=== PATIENT | female | born 1985 | race Caucasian/White ===

== ENCOUNTER 2022-01-25 20:08 | Emergency (ER) | payer SELFPAY ==
--- OUTSIDE RECORDS SUMMARY | 2022-01-25 20:11 | XMS REPORT | Continuity of Care Document ---
:1985 Author Organization [facility] t Address [address] [place] [address] Care Team Providers Name Role Phone Randa Lazar Attending Clinician Unavailable Leni Perez Attending Clinician Unavailable Randa Lazar Admitting Clinician Unavailable Leni Perez Admitting Clinician Unavailable Payers Payer Name Policy Type Policy Number Effective Date Expiration Date S ource Problems This patient has no known problems. Allergies, Adverse Reactions, Alerts Allergy Allergy Status Severity Reaction(s) Onset Inactive Treating Comm ents Source Name Type Date Date Clinician cefoxiti [place] Active [place] [facility] [place] cefox[facility] [place] [facility] sodium 1-08 [facility] [place] No Known DA Active [facility] [facility]: [address] c[place] [facility] sodium 9- [facility] [place] cefox[facility] DA Active [place] [facility] n sodium 9 [facility] [place] Family History Family Member Diagnosis Comments Start Date Stop Date Source Paternal aunt Cervical cancer [facility] Paternal grandfather Cancer [facility] Paternal grandmother Colon cancer [facility] Natural sister No Known Problems Met [facility] Natural [facility] Natural son No Known Problems Method [facility] Natural father No Known Problems Met [facility] Maternal aunt Breast cancer [facility] Maternal aunt No [facility] Maternal grandfather Stomach cancer [facility] Maternal grandmother Lung cancer Met [facility] Natural mother No Known Problems Met [facility] Other No Known Problems [facility] Social History Social Habit Start Date Stop Date Quantity Comments Source Sex Ass[birth year] [facility] 00:00:00 00:00:00 Smoking Status Start Date Stop Date Source Never smoked tobacco [facility]spital Medications Ordered Filled Start Stop Current Ordering Indication Dosage Frequency Signature Comments Components Source Medication Medication Date Date Medication? Clinician (SIG) Name Name valACYclovi Yes TAKE 1 Meth diana r (VALTREX) 8-[address] 500 MG 00:00: EVERY 12 Hospita tablet 00 HRS ORALLY l 3 DAY(S) Procedures Procedure Date / Time Performed Performing Clinician [facility] e [id number] 2020-05-06 00:00:00 [facility] [id number] 2020-05-06 00:00:00 [facility] [id number] 2020-05-06 00:00:00 [facility] Plan of Care Planned Activity Planned Date Details Comments Source Future Scheduled 2021-12-27 HEPATITIS B [facility] Test 18:42:37 VACCINES (1 of 3 - 3-dose series) [code = HEPATITIS B VACCINES (1 of 3 - 3-dose series)] Future Scheduled 2021-12-27 COVID-19 VACCINE [facility] Test 18:42:37 (#1) [code = COVID-19 VACCINE (#1)] Future Scheduled 2021-12-27 Screening for [facility] Test 18:42:37 malignant neoplasm of cervix (procedure) [code = 150263914] Future Scheduled 2021-12-27 INFLUENZA VACCINE [facility] Test 18:42:37 [code = INFLUENZA VACCINE] Encounters Start End Encounter Admission Attending Care Care Encounter Source Date/Time Date/Time Type Type Clinicians Facility Department ID 2020-05-30 Inpatient EMMA Lazar [facility] [id number] [facility] 15:00:00 Crystal 45 [facility] [place] 2020-05-05 Inpatient Chris, [facility] RIZWANA [id number] [facility] 11:54:00 Leni 94 [facility] [place] 2020-04-17 Inpatient EL [place], [facility] DIAB [id number] [facility] 07:56:00 Leni 47 [facility] 2020-05-05 2020-05-05 Outpatient Nagi, HCA[facility] REFE [id number] [facility] 17:13:00 17:13:[address] [facility] 2019-12-30 2019-12-30 Outpatient [place], [facility] RADI [id number] [facility] 11:00:00 11:00:00 Leni 41 [facility] Results Test Description Test Time Test Comments Results Result Comments Source GLUBED 2020-05-09 14:54:00 Test Item Value Reference Range Interpretation Comme nts GLUBED (test code = GLUBED) 94 mg/dL 65-110 N [id number] 14:54:00 Test Item Value Reference Range Interpretation Comments GLUBED (test code = GLUBED) 88 mg/dL 65-110 N [id number] 14:54:00 Test Item Value Reference Range Interpretation Comments GLUBED (test code = GLUBED) 90 mg/dL 65-110 N HGB [id number] 07:45:00 Test Item Value Reference Range Interpretation Comments HEMOGLOBIN (test code = HGB) 11.7 g/dL 10.7-13.9 N HEMATOCRIT (test code = HCT) 37.8 % 32.1-42.1 N COMPREHENSIVE METABOLIC [id number] 00:58:00 Test Item Value Reference Range Interpretation Comments SODIUM (test code = NA) 136 mEq/L 135-145 N POTASSIUM (test code = K) 4.3 mEq/L 3.5-5.0 N CHLORIDE (test code = CL) 102 mEq/L 100-115 N CARBON DIOXIDE (test code = CO2) 21 mEq/L 22-31 L ANION GAP (test code = GAP) 17.20 10-20 N GLUCOSE (test code = GLU) 57 mg/dL 65-110 L BLOOD UREA NITROGEN (test code = 12 mg/dL 7-18 N BUN) GLOMERULAR FILTRATION RATE (test 141 ml/min >60 N code = GFR) CREATININE (test code = CREAT) 0.5 mg/dL 0.5-1.0 N TOTAL PROTEIN (test code = PROT) 6.2 gm/dL 6.3-8.2 L ALBUMIN (test code = ALB) 2.8 gm/dL 3.4-4.8 L CALCIUM (test code = CA) 8.8 mg/dL 8.4-10.2 N BILIRUBIN TOTAL (test code = BILT) 0.9 mg/dL 0.2-1.0 N SGOT/AST (test code = AST) 26 units/L 15-37 N SGPT/ALT (test code = ALT) 19 units/L 12-78 N ALKALINE PHOSPHATASE TOTAL (test 95 units/L 46-116 N code = ALKP) GLYCOSYLATED HEMOGLOBIN (HA1C)2020-05-07 00:58:00 Test Item Value Reference Range Interpretation Comments GLYCOSYLATED 4.1 % 4.8-5.9 L Any condition t hat shortens HEMOGLOBIN (HA1C) erythocyte survival or (test code = GLYHGB) decreas esmean erythrocyte age (e.g., agnieszka very from acute blood los s,hemolytic anemia) will fa lsely lower HGBA1c resultsr egardless of the method used . HGBA1c results from [place] HbSS, HbCC, and HbSc must be interpreted with cautiongiven th e pathological pr ocesses, including anemi a,increased red cell turnov er, transfusion req uirements, thatadversely i mpact HGBA1c as a marker of long-term glycemiccontrol . Alternative for ms of testing such as fructosaminesho uld be considered for these patients. GLYCOSYLATED HEMOGLOBIN [id number] 00:57:00 Test Item Value Reference Range Interpretation Comments GLYCOSYLATED 4.1 % 4.8-5.9 L Any condition t hat HEMOGLOBIN (HA1C) shortens e rythocyte (test code = GLYHGB) surviva l or decreasesmean erythrocyte age (e.g., recovery from a cute blood loss,hemolytic anemia) will falsely lo wer HGBA1c resultsregardle ss of the method used. HG BA1c results from [place] HbSS, HbCC, and HbSc must be interpreted with cautiongiven th e pathological pr ocesses, including anemia,increase d red cell turnover, trans fusion requirements, thatadversely i mpact HGBA1c as a mar ker of long-term glycemiccontrol . Alternative for ms of testing such as fructosaminesho uld be considered for these patients. MEAN BLOOD GLUCOSE 71 MG/DL 70-110 N (test code = MBG) AB [id number] 18:32:00 Test Item Value Reference Range Interpretation Comments AB TREPONEMA (test code = TREPAB) NONREACTIVE NONREACTIVE IS CONSENT FORM SIGNED FOR HIV TESTING? YAB HIV 1 18:32:00 Test Item Value Reference Range Interpretation Comments AB HIV 1 2 (test NONREACTIVE NONREACTIVE Done by [facility] code = [id number]) 4th Gen HIV Ag/Ab Combo Screen IS CONSENT FORM SIGNED FOR HIV TESTING? YAG HEPATITIS B [id number] 18:32:00 Test Item Value Reference Range Interpretation Comments AG HEPATITIS B SURFACE (test code NONREACTIVE NONREACTIVE = HBSAG) IS CONSENT FORM SIGNED FOR HIV TESTING? [facility] HEPATITIS C [id number] 18:32:00 Test Item Value Reference Range Interpretation Comments AB HEPATITIS C (test code = NONREACTIVE NONREACTIVE HCVAB) SIGNAL TO CUTOFF (test code = <0.02 <0.80 N CUTOFF) IS CONSENT FORM SIGNED FOR HIV TESTING? YAG HEPATITIS B [id number] 18:22:00 Test Item Value Reference Range Interpretation Comments AG HEPATITIS B SURFACE (test code NONREACTIVE NONREACTIVE = HBSAG) IS CONSENT FORM SIGNED FOR HIV TESTING? [facility] HEPATITIS C [id number] 18:22:00 Test Item Value Reference Range Interpretation Comments AB HEPATITIS C (test code = HCVAB) NONREACTIVE SIGNAL TO CUTOFF (test code = CUTOFF) <0.80 IS CONSENT FORM SIGNED FOR HIV TESTING? YAB [id number] 18:22:00 Test Item Value Reference Range Interpretation Comments AB TREPONEMA (test code = TREPAB) NONREACTIVE NONREACTIVE IS CONSENT FORM SIGNED FOR HIV TESTING? YAB HIV 1 18:22:00 Test Item Value Reference Range Interpretation Comments AB HIV 1 2 (test code = [id number]) NONREACTIVE IS CONSENT FORM SIGNED FOR HIV TESTING? YCOMPREHENSIVE METABOLIC [id number] 17:40:00 Test Item Value Reference Range Interpretation Comments SODIUM (test code = NA) 136 mEq/L 135-145 N POTASSIUM (test code = K) 4.3 mEq/L 3.5-5.0 N CHLORIDE (test code = CL) 102 mEq/L 100-115 N CARBON DIOXIDE (test code = CO2) 21 mEq/L 22-31 L ANION GAP (test code = GAP) 17.20 10-20 N GLUCOSE (test code = GLU) 57 mg/dL 65-110 L BLOOD UREA NITROGEN (test code = 12 mg/dL 7-18 N BUN) GLOMERULAR FILTRATION RATE (test 141 ml/min >60 N code = GFR) CREATININE (test code = CREAT) 0.5 mg/dL 0.5-1.0 N TOTAL PROTEIN (test code = PROT) 6.2 gm/dL 6.3-8.2 L ALBUMIN (test code = ALB) 2.8 gm/dL 3.4-4.8 L CALCIUM (test code = CA) 8.8 mg/dL 8.4-10.2 N BILIRUBIN TOTAL (test code = BILT) 0.9 mg/dL 0.2-1.0 N SGOT/AST (test code = AST) 26 units/L 15-37 N SGPT/ALT (test code = ALT) 19 units/L 12-78 N ALKALINE PHOSPHATASE TOTAL (test 95 units/L 46-116 N code = ALKP) GLYCOSYLATED HEMOGLOBIN (HA1C)2020-05-05 17:40:00 Test Item Value Reference Range Interpretation Comments GLYCOSYLATED HEMOGLOBIN (HA1C) (test code = GLYHGB) COVID 19 Asymptomatic IH [id number] 14:34:00 Test Item Value Reference Range Interpretation Comments COVID 19 NEGATIVE NEGATIVE This test has b een Asymptomatic IH AG authorize d only for the (test code = detection ofpro teins from COVNONPUIAG) SARS-CoV-2, not for any other viruses orpathogens. Ne gative results should be treated as presumptive andconfirmed wi th a molecular assay , if necessary for patientmanageme nt. Negative result s do not rule out COVID- 19 andshould not b e used as the sole basis for treatment orpat ient management deci sions, including infec tion controldecision s. Negative result s should be considered i n thecontext of a patient's recent exposure s, history and thepresence of clinical signs and symptoms consis tent withCOVID-19. T his test has not been FD A cleared or approved; th e test hasbeen authorrakesh guillory by FDA under an Emerge ncy Use Authorization(E UA) for use by lesa owens certified under the CLIA thatmeet the re quirements to perform mode rate, high or waivedcomple xity tests. This sherrie t is authorized for use at thePoint of Car e (POC), i.e., in patien t care settingsoperati ng under a CLIA Certificat e of Waiver, Certifi federico ofCompliance, o r Certificate of Accreditation. This test is only authori kahlil for the duration of thedeclaration that circumstances e xist justifying theauthorizatio n of emergency use o f in vitro diagnostic test sfor detection and/o r diagnosis of CO VID-19 under Guccdzk76 4(b)(1) of the Act, 21 U.S .C. 360bbb-3(b)(1), unless theauthorizatio n is terminated or r evoked sooner. CBC W/AUTO [id number] 13:02:00 Test Item Value Reference Range Interpretation Comments WHITE BLOOD CELL (test code = WBC) 12.4 K/mm3 6.6-12.1 H RED BLOOD CELL (test code = RBC) 3.79 M/mm3 3.45-5.01 N HEMOGLOBIN (test code = HGB) 12.2 g/dL 10.7-13.9 N HEMATOCRIT (test code = HCT) 38.4 % 32.1-42.1 N MEAN CELL VOLUME (test code = MCV) 101 fL 84.1-94.8 H MEAN CELL HGB (test code = MCH) 32.2 pg 27-35 N MEAN CELL HGB CONCETRATION (test 31.8 gm/dL 32.2-34.1 L code = MCHC) RED CELL DISTRIBUTION WIDTH (test 18.2 % 12.4-16.5 H code = RDW) PLATELET COUNT (test code = PLT) 147 K/mm3 133-385 N MEAN PLATELET VOLUME (test code = 11.4 fl 9.1-12.7 N MPV) NEUTROPHIL % (test code = NT%) 79.2 % 56.5-79.4 N LYMPHOCYTE % (test code = LY%) 11.8 % 14.3-34.3 L MONOCYTE % (test code = MO%) 7.8 % 5.1-10.4 N EOSINOPHIL % (test code = EO%) 0.3 % 0.1-3.0 N BASOPHIL % (test code = BA%) 0.2 % 0.1-1.0 N NEUTROPHIL # (test code = NT#) 9.8 K/mm3 LYMPHOCYTE # (test code = LY#) 1.5 K/mm3 MONOCYTE # (test code = MO#) 1.0 K/mm3 EOSINOPHIL # (test code = EO#) 0.04 K/mm3 BASOPHIL # (test code = BA#) 0.0 K/mm3 RBC MORPHOLOGY REQUIRED (test code NORMAL NORMAL = RBCM) PLATELET MORPHOLOGY REQUIRED (test NORMAL NORMAL code = PLTMR) - US PREG AFTER [id number] 12:52:00 Patient Name: LINDSAY WATTS Unit No: [id number] EXAMS: CPT CODE: [id number] US PREG AFTER TRI [address] [facility] [address] [place], [place] [address] OBSTETRICAL ULTRASOUND REPORT - Pat. Name: LINDSAY WATTS Pat. No: [id number] Study Date: 12/30/2019 12:06pm , Age: 03 1985, 34 Pregnancies: 3,Para 2 LMP: Unknown GA by US: 17w6d GA Selected: 18w2d (From Known E) AURELIA: 05/30/2020 Referring MD: LENI PEREZ Tonsorial Artist: Angélica Roth RDMS, RVT CPT4: [id number] Admitting MD: LENI PEREZ Hist/Ind: SCAN 1 ANATOMY MEASUREMENTS AGE GROWTH EVALUATION Measurement GA Range Srce %for GA Ratios ----- ---- ------- BPD 3.9 cm 17w5d (46p7a-15u1y) Hadl BPD23% FL/BPD 0.69 HC 14.7 cm 17w5d (16w3d- 19w1d) Hadl HC 34% FL/AC 0.21 APD 4.1 cm APD HC/AC 1.14 (1.07 - 1.26) TAD 4.1 cm TAD CI 0.79 (0.70 - 0.86) AC 12.9 cm 18w1d (92x8r-02h3u) Hadl AC 46% FL 2.7 cm 17w6d (39d9u-00m1w) Hadl FL 32% HL 2.5 cm 17w6d (63z9o-62v7p) Tien HL 42% GA for sonogram 17w6d (89y3u-73w8j) Weight Estimate: based on (HL,BPD,HC,AC,FL) Avg Weight: 232 gm (198-266) Hadlock : 0lbs, 8oz Cervical Length: 3.4 cm Heart Rate: 143 bpm MATERNAL ANATOMY Ovaries LxHxW (cm) Right 3.4 x 2.1 x 1.8 Vol: 6.7cc Left 2.6 x 1.3 x 1.8 Vol: 3.2cc ---- CLINICAL SUMMARY Type of Gestation: Staples Intrauterine in vertex presentation. size is appropriate for gestational age. growth: Consistentwith normal growth motion and organs seen: heart motion seen body and limb movements seen Four chamber heart observed Left ventricular outflow tract (LVOT) seen [facility] NAME: LINDSAY WATTSN Radiology Department PHYS: Leni Harp MD [address] : 1985 AGE: 34 SEX: F [place], [place] [address] LOC: JABARI PHONE #: [phone] EXAM DATE: 12/30/2019 STATUS: REG CLI FAX #: [phone] RAD NO: Page 1 SignedReport (CONTINUED) Patient Name: LINDSAY WATTS Unit No: [id number] EXAMS: CPT CODE: [id number] PREG AFTER TRI [id number] (Continued) Right ventricular outflow tract (RVOT) seen Normal intracranial anatomy seen face and nasal bone seen Umbilical cord insertion in fetus seen stomach,Renal Fossa, Bladder and Spine seen Three vessel umbilical cord noted All four extremities observed abnormalities observed: None seen at this exam Placental location: Anterior Placental maturity : Grade 1 There is no evidence of placenta previa. Amniotic fluid volume is normal. Uterus and adnexa: No significant abnormality is seen. Thank you for allowing us to participate in the care of this patient. Arvind Rowell M.D. Electronic Signature 12/30/2019 12:52pm Electronically S igned by Arvind Rowell MD on 12/30/2019 at 1252 Reported and signed by: Arvind Rowell MD CC: Leni Perez MD Technologist: Angélica Roth RDMS, RVT Probe: Trnscrbd D/ (1252) [email or web address] Orig Print D/T: S: 12/30/2019 (1252) [facility] NAME: LINDSAY WATTS Radiology Department PHYS: Leni Harp MD [address] : 1985 AGE: 34 SEX: F [place] [address] LOC: [place].RAD PHONE #: [phone] EXAM DATE: 12/30/2019 STATUS: REG CLI FAX #: [phone] RAD NO: Page 2 Signed Report Patient Name: LINDSAY WATTS Unit No: [id number] EXAMS: CPT CODE: [id number] US PREG AFTER 1ST TRI 76460 (Continued) [facility] NAME: ALYSIA WATTSYSTAL KADIE Radiology Department PHYS: Leni Harp MD [address] : 1985 AGE: 34 SEX: F [place] [address] LOC: F.RAD PHONE #: [phone] EXAM DATE: 12/30/2019 STATUS: REG CLI FAX #: [phone] RAD NO: Page 3 Signed Report
[2022-01-25 20:38] LABS: Urine Blood 3+ (Negative); Urine Glucose Negative (Negative); Urine Protein 3+ (Negative); Urine Specific Gravity 1.025 (1.005-1.030); Urine pH 6.5 (5.0-7.0)
[2022-01-25] MEDS ORDERED: BISACODYL 10 MG RECTAL SUPP ONE (20:49)
[2022-01-25] MEDS ORDERED: FAMOTIDINE 20 MG/2 ML VIAL IV ONE (20:50)
[2022-01-25] MEDS ORDERED: NA CHLORIDE 0.9% 1,000 ML ONE (20:50)
[2022-01-25] MEDS ORDERED: ONDANSETRON 4 MG/2 ML VIAL ONE (20:50)
[2022-01-25] MEDS ORDERED: LACTULOSE 20 GM/30 ML UCUP ONE (20:50)
[2022-01-25 20:58] LABS: Urine Bacteria <20 /HPF (<20); Urine Mucus Slight /HPF (None Seen); Urine RBC >50 /HPF (None Seen); Urine WBC Clump Many /HPF (None Seen)
[2022-01-25] MEDS ORDERED: MORPHINE 4 MG/ML SYR ONE (20:59)
[2022-01-25] MEDS ORDERED: CEFTRIAXONE 1000 MG/VIAL ONE (21:40)
[2022-01-25] MEDS ORDERED: NA CHLORIDE 0.9% 50 ML IV ONE (21:40)
[2022-01-25 21:47] LABS: Absolute Lymphocytes (CBC) 2.1 K/uL (0.7-4.9); Hematocrit 41.2 % (36.0-45.0); Lymphocytes % 15.6 % (15.3-44.8); MCV 92.5 fL (80-100); MPV 8.6 fL (7.6-11.3); RBC Red Blood Cell Count 4.46 M/uL (3.86-4.86)
[2022-01-25] MEDS ORDERED: levoFLOXacin 750 MG TAB ONE (21:51)
[2022-01-25 22:01] LABS: Albumin 4.1 g/dL (3.4-5.0); Bilirubin Total 0.9 mg/dL (0.2-1.0); Potassium 3.6 mmol/L (3.5-5.1); Protein, Total 7.8 g/dL (6.4-8.2)
--- NOTE | 2022-01-25 22:09 | RAD REPORT ---
EXAM DESCRIPTION: CTAbdomen Pelvis W Contrast - 01/25/2022 10:01 pm CLINICAL HISTORY: Flank pain, kidney stone suspected COMPARISON: <Comparisons> TECHNIQUE: CT of the abdomen and pelvis was performed with IV contrast. All CT scans are performed using dose optimization technique as appropriate and may include automated exposure control or mA/KV adjustment according to patient size. FINDINGS: Lower chest: No acute abnormality. Liver: No acute abnormality or suspicious lesions. Biliary: No biliary ductal dilatation. Stomach: No significant focal abnormality. Duodenum: No significant focal abnormality. Pancreas: No significant abnormality. Spleen: No significant abnormality. Adrenal: No suspicious lesions. Kidney/ureter: No hydronephrosis. No renal calculi. Left-sided urothelial thickening. Retroperitoneum: No retroperitoneal adenopathy. Vascular: No aneurysm. Bowel: Normal appendix.. Peritoneum: Trace free fluid. Bladder: Circumferential bladder wall thickening. There is hyperenhancement as well. Reproductive: No adnexal masses. Nabothian cyst. Bones: No acute fracture. Other: n/a IMPRESSION: Cystitis with ascending urinary tract infection at the left kidney but no hydronephrosis or pyelonephritis identified.
--- NOTE | 2022-01-25 22:20 | EDPHYS ---
Physician Documentation [facility] Name: Audra Lechuga Age: 36 yrs Sex: Female : 1985 Arrival Date: 01/25/2022 Time: 20:10 Bed 7 Private MD: KRAIG Physician Jaquan Edward HPI: 01/25 22:14 This 36 yrs old Female presents to ER via Ambulatory with complaints of darien Constipation, Back Pain. 22:14 The patient presents with pain that is acute, with no known mechanism of injury. The darien symptoms are located in the low back, left low back and left mid back. Onset: The symptoms/episode began/occurred 3 day(s) ago. The pain radiates to the left low back and left mid back. Associated signs and symptoms: The patient has no apparent associated signs or symptoms. The problem was sustained from unknown cause. Modifying factors: The patient symptoms are alleviated by nothing, the patient symptoms are aggravated by nothing. Severity of symptoms: At their worst the symptoms were mild, in the emergency department the symptoms are unchanged. The patient has not experienced similar symptoms in the past. 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 - Social history:: Smoking status: Patient denies any tobacco usage or history of. - Family history:: not pertinent. ROS: 22:14 Constitutional: Negative for fever, chills, and weight loss, Eyes: Negative for injury, darien pain, redness, and discharge, ENT: Negative for injury, pain, and discharge, Neck: Negative for injury, pain, and swelling, Cardiovascular: Negative for chest pain, palpitations, and edema, Respiratory: Negative for shortness of breath, cough, wheezing, and pleuritic chest pain, Abdomen/GI: Negative for abdominal pain, nausea, vomiting, diarrhea, and constipation, : Negative for injury, bleeding, discharge, and swelling, MS/Extremity: Negative for injury and deformity, Skin: Negative for injury, rash, and discoloration, Neuro: Negative for headache, weakness, numbness, tingling, and seizure, Psych: Negative for depression, anxiety, suicide ideation, homicidal ideation, and hallucinations, Allergy/Immunology: Negative for hives, rash, and allergies, Endocrine: Negative for neck swelling, polydipsia, polyuria, polyphagia, and marked weight changes, Hematologic/Lymphatic: Negative for swollen nodes, abnormal bleeding, and unusual bruising. 22:14 Back: Positive for flank pain, on the left. 22:14 MS/extremity: Negative for acute changes, decreased range of motion, pain, swelling, tenderness. Exam: 22:14 Constitutional: This is a well developed, well nourished patient who is awake, alert, darien and in no acute distress. Head/Face: Normocephalic, atraumatic. Eyes: Pupils equal round and reactive to light, extra-ocular motions intact. Lids and lashes normal. Conjunctiva and sclera are non-icteric and not injected. Cornea within normal limits. Periorbital areas with no swelling, redness, or edema. ENT: Nares patent. No nasal discharge, no septal abnormalities noted. Tympanic membranes are normal and external auditory canals are clear. Oropharynx with no redness, swelling, or masses, exudates, or evidence of obstruction, uvula midline. Mucous membranes moist. Neck: Trachea midline, no thyromegaly or masses palpated, and no cervical lymphadenopathy. Supple, full range of motion without nuchal rigidity, or vertebral point tenderness. No Meningismus. Chest/axilla: Normal chest wall appearance and motion. Nontender with no deformity. No lesions are appreciated. Cardiovascular: Regular rate and rhythm with a normal S1 and S2. No gallops, murmurs, or rubs. Normal PMI, no JVD. No pulse deficits. Respiratory: Lungs have equal breath sounds bilaterally, clear to auscultation and percussion. No rales, rhonchi or wheezes noted. No increased work of breathing, no retractions or nasal flaring. Back: No spinal tenderness. No costovertebral tenderness. Full range of motion. Pelvic Exam: Normal external genitalia. Speculum exam with closed cervical os, no discharge or bleeding noted. Bimanual exam with normal adnexa, no adnexal or cervical motion tenderness. Normal uterus. Female : Normal external genitalia. Skin: Warm, dry with normal turgor. Normal color with no rashes, no lesions, and no evidence of cellulitis. MS/ Extremity: Pulses equal, no cyanosis. Neurovascular intact. Full, normal range of motion. Neuro: Awake and alert, GCS 15, oriented to person, place, time, and situation. Cranial nerves II-XII grossly intact. Motor strength 5/5 in all extremities. Sensory grossly intact. Cerebellar exam normal. Normal gait. 22:14 Abdomen/GI: Inspection: abdomen appears normal, Bowel sounds: normal, Palpation: soft, nontender, in all quadrants, Liver: no appreciated palpable abnormalities, Hernia: not appreciated. Vital Signs: 20:19 BP 126 / 82; Pulse 82; Resp 16; Temp 98.9; Pulse Ox 100% ; Weight 58.97 kg; Height 4 kb3 ft. 11 in. (149.86 cm); Pain 10/10; 21:08 BP 123 / 80; Pulse 86; Resp 18; Pulse Ox 100% on R/A; Pain 8/10; as6 21:57 BP 120 / 93; Pulse 78; Resp 16 S; Pulse Ox 100% on R/A; as6 20:19 Body Mass Index 26.26 (58.97 kg, 149.86 cm) kb3 MDM: 20:12 Patient medically screened. darien 22:17 Differential diagnosis: Hydronephrosis Pyelonephritis Renal Infarction darien Ureterolithiasis. Data reviewed: vital signs, nurses notes, lab test result(s), radiologic studies, CT scan. 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 Counseling: I had a detailed discussion with the patient and/or guardian regarding: the historical points, exam findings, and any diagnostic results supporting the discharge/admit diagnosis, lab results, radiology results, the need for outpatient follow up, for definitive care, a family practitioner. 01/25 20:21 Order name: CBC with Diff [facility] 01/25 20:21 Order name: CMP [facility] 01/25 20:21 Order name: Lipase [facility] 01/25 20:21 Order name: Urine Microscopic Only [facility] 01/25 20:38 Order name: Urine Dipstick-Ancillary; Complete Time: 21:36 EDMS 01/25 20:59 Order name: Urine Microscopic Only; Complete Time: 21:36 EDMN 01/25 20:59 Order name: Urine --Ancillary (enter results) 01/25 21:37 Order name: CT Abd/Pelvis - IV Contrast Only [facility] 01/25 21:53 Order name: CBC with Automated Diff; Complete Time: 22:12 EDMN 01/25 22:01 Order name: Comprehensive Metabolic Panel; Complete Time: 22:12 [facility] 01/25 22:01 Order name: Lipase; Complete Time: 22:12 [facility] 01/25 22:10 Order name: CT; Complete Time: 22:12 [facility] 01/25 20:21 Order name: IV Saline Lock; Complete Time: 21:06 [facility] 01/25 20:21 Order name: Labs collected and sent; Complete Time: 21:06 [facility] 01/25 20:21 Order name: Urine Dipstick-Ancillary (obtain specimen); Complete Time: 20:47 [facility] 01/25 20:21 Order name: Urine Test (obtain specimen); Complete Time: 20:47 [facility] Administered Medications: 21:06 Drug: NS 0.9% 1000 ml Route: IV; Rate: 1 bolus; Site: right antecubital; as6 22:28 Follow up: Response: No adverse reaction; IV Status: Completed infusion; IV Intake: as6 1000ml 21:06 Drug: Pepcid (famotidine) 20 mg Route: IVP; Site: right antecubital; as6 22:28 Follow up: Response: No adverse reaction as6 21:06 Not Given (pt does not have constipationn): Lactulose 30 grams 45 ml PO once as6 21:06 Not Given (Pt does not have constipationn): Dulcolax (bisacodyl) Suppository 10 mg [place] as6 once 21:06 Drug: morphine 4 mg Route: IVP; Infused Over: 4 mins; Site: right antecubital; as6 22:28 Follow up: Response: No adverse reaction as6 21:07 Drug: Zofran (Ondansetron) 4 mg Route: IVP; Site: right antecubital; as6 22:28 Follow up: Response: No adverse reaction as6 21:45 Drug: Rocephin (cefTRIAXone) 1 grams Route: IV; Rate: per protocol; Site: right as6 antecubital; 22:28 Follow up: Response: No adverse reaction; IV Status: Completed infusion; IV Intake: [id number] 22:09 Drug: LevOfloxacin 750 mg Route: PO; as6 22:28 Follow up: Response: No adverse reaction as6 Disposition Summary: 01/25/22 22:19 Discharge Ordered Location: Home darien Problem: new darien Symptoms: have improved darien Condition: Stable darien Diagnosis - UTI/ Urinary tract infection, site not specified darien - Dysuria darien - Acute cystitis with hematuria [facility] Followup: darien - With: Private Physician - When: 2 - 3 days - Reason: Recheck today's complaints, Continuance of care, Re-evaluation by your physician Followup: darien - With: Dandy Van, - When: 2 - 3 days - Reason: Recheck today's complaints, Re-evaluation by your physician Discharge Instructions: - Discharge Summary Sheet darien - Dysuria darien - Urinary Tract Infection, Adult darien - Urinary Tract Infection, Adult, Eoxn-oh-Tbol [facility] Forms: - Medication Reconciliation Form [facility] - Thank You Letter [facility] - Antibiotic Education [facility] - Prescription Opioid Use [facility] Prescriptions: - Pyridium 200 mg Oral Tablet - take 1 tablet by ORAL route every 8 hours for 3 days; 9 tablet; Refills: 0, [facility] Product Selection Permitted - cefpodoxime 200 mg Oral Tablet - take 2 tablet by ORAL route every 12 hours with food; 28 tablet; Refills: 0, [facility] Product Selection Permitted - levofloxacin 500 mg Oral Tablet - take 1 tablet by ORAL route once daily for 10 days; 10 tablet; Refills: 0, [facility] Product Selection Permitted Signatures: Dispatcher [employer] Jaquan Pollard MD MD cha Slawson, Ashby, RN RN as6 Kindra Michaud RN RN kb3 Corrections: (The following items were deleted from the chart) 22:20 22:19 Acute cystitis [facility]
--- NOTE | 2022-01-25 22:20 | ER ---
Nurse's Notes [facility] Name: Audra Lechuga Age: 36 yrs Sex: Female : 1985 Arrival Date: 01/25/2022 Time: 20:10 Bed 7 Private MD: Diagnosis: UTI/ Urinary tract infection, site not specified;Dysuria;Acute cystitis with hematuria Presentation: 01/25 20:19 Chief complaint: Patient states: Pt reports pain with urination, bilateral flank pain, kb3 hesitancy, frequency, chills, abdominal bloating x2 days. Coronavirus screen: Vaccine status: Patient reports being unvaccinated. Client denies travel out of the [place] in the last 14 days. Ebola Screen: Patient negative for fever greater than or equal to 101.5 degrees Fahrenheit, and additional compatible Ebola Virus Disease symptoms Patient denies exposure to infectious person. Patient denies travel to an Ebola-affected area in the 21 days before illness onset. No symptoms or risks identified at this time. Initial Sepsis Screen: Does the patient meet any 2 criteria? No. Patient's initial sepsis screen is negative. Does the patient have a suspected source of infection? No. Patient's initial sepsis screen is negative. Risk Assessment: Do you want to hurt yourself or someone else? Patient reports no desire to harm self or others. Onset of symptoms was January 23, 2022. 20:19 Method Of Arrival: Ambulatory kb3 20:19 Acuity: OMEGA 3 kb3 Triage Assessment: 20:21 General: Appears in no apparent distress. uncomfortable, Behavior is calm, cooperative. kb3 Pain: Complains of pain in left low back and right low back Pain does not radiate. Pain currently is 10 out of 10 on a pain scale. GI: Reports lower abdominal pain, bloating, Pain with urination. 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 - Social history:: Smoking status: Patient denies any tobacco usage or history of. - Family history:: not pertinent. Screenin:08 Abuse screen: Denies threats or abuse. Denies injuries from another. Nutritional as6 screening: No deficits noted. Tuberculosis screening: No symptoms or risk factors identified. Fall Risk None identified. Assessment: 21:07 General: Appears in no apparent distress. uncomfortable, Behavior is calm, cooperative, as6 appropriate for age. Pain: Complains of pain in low back area and left lower quadrant Pain does not radiate. Pain currently is 8 out of 10 on a pain scale. Quality of pain is described as throbbing, Pain began 1 day ago. Neuro: Level of Consciousness is awake, alert, obeys commands, Oriented to person, place, time, situation. Cardiovascular: Capillary refill < 3 seconds Patient's skin is warm and dry. Rhythm is sinus rhythm. Respiratory: Airway is patent Respiratory effort is even, unlabored. GI: Abdomen is flat, non-distended, Bowel sounds present X 4 quads. Abd is soft Abdomen is tender to palpation in left lower quadrant. GI: Patient currently denies constipation. : Reports burning with urination, pain in bilateral flank(s), urgency, urinary frequency. EENT: No signs and/or symptoms were reported regarding the EENT system. Derm: No signs and/or symptoms reported regarding the dermatologic system. Musculoskeletal: No signs and/or symptoms reported regarding the musculoskeletal system. 21:48 Reassessment: Patient appears in no apparent distress at this time. Patient states as6 feeling better. Patient states symptoms have improved. Vital Signs: 20:19 BP 126 / 82; Pulse 82; Resp 16; Temp 98.9; Pulse Ox 100% ; Weight 58.97 kg; Height 4 kb3 ft. 11 in. (149.86 cm); Pain 10/10; 21:08 BP 123 / 80; Pulse 86; Resp 18; Pulse Ox 100% on R/A; Pain 8/10; as6 21:57 BP 120 / 93; Pulse 78; Resp 16 S; Pulse Ox 100% on R/A; as6 20:19 Body Mass Index 26.26 (58.97 kg, 149.86 cm) kb3 ED Course: 20:10 Patient arrived in ED. am2 20:12 Jaquan Edward MD is Attending Physician. darien 20:21 Triage completed. kb3 20:21 Arm band placed on right wrist. kb3 20:32 Brian Khan, SONIA is Primary Nurse. as6 21:06 Urine --Ancillary (enter results) Sent. as6 21:07 No provider procedures requiring assistance completed. Inserted saline lock: 20 gauge as6 in right antecubital area, using aseptic technique. Blood collected. 21:08 Patient has correct armband on for positive identification. Placed in gown. Bed in low as6 position. Call light in reach. Side rails up X2. field administrator on. Pulse ox on. NIBP on. Door closed. Noise minimized. Warm blanket given. 22:18 Dandy Van DO is Referral Physician. [facility] 22:28 IV discontinued, intact, bleeding controlled, No redness/swelling at site. Pressure as6 dressing applied. Administered Medications: 21:06 Drug: NS 0.9% 1000 ml Route: IV; Rate: 1 bolus; Site: right antecubital; as6 22:28 Follow up: Response: No adverse reaction; IV Status: Completed infusion; IV Intake: as6 1000ml 21:06 Drug: Pepcid (famotidine) 20 mg Route: IVP; Site: right antecubital; as6 22:28 Follow up: Response: No adverse reaction as6 21:06 Not Given (pt does not have constipationn): Lactulose 30 grams 45 ml PO once as6 21:06 Not Given (Pt does not have constipationn): Dulcolax (bisacodyl) Suppository 10 mg [place] as6 once 21:06 Drug: morphine 4 mg Route: IVP; Infused Over: 4 mins; Site: right antecubital; as6 22:28 Follow up: Response: No adverse reaction as6 21:07 Drug: Zofran (Ondansetron) 4 mg Route: IVP; Site: right antecubital; as6 22:28 Follow up: Response: No adverse reaction as6 21:45 Drug: Rocephin (cefTRIAXone) 1 grams Route: IV; Rate: per protocol; Site: right as6 antecubital; 22:28 Follow up: Response: No adverse reaction; IV Status: Completed infusion; IV Intake: [id number] 22:09 Drug: LevOfloxacin 750 mg Route: PO; as6 22:28 Follow up: Response: No adverse reaction as6 Medication: 21:08 VIS not applicable for this client. as6 Intake: 22:28 IV: 50ml; Total: 50ml. as6 22:28 IV: 1000ml; Total: 1050ml. as6 Outcome: 22:19 Discharge ordered by . darien 22:27 Discharged to home ambulatory. as6 22:27 Condition: stable 22:27 Discharge instructions given to patient, Instructed on discharge instructions, follow up and referral plans. medication usage, Demonstrated understanding of instructions, follow-up care, medications, Prescriptions given X 3. 22:29 Patient left the ED. as6 Addendum: 01/29/2022 08:26 Addendum: Culture Results: Positive urine culture. No further action required. Bacteria s s sensitive to prescribed antibiotic. Signatures: Jaquan Edward MD MD cha Smirch, Shelby, Vanessa Perales RN, am2 Brian Khan RN RN as6 Kindra Michaud RN RN kb3
[2022-01-25 22:35] LABS: Urine Specific Gravity/Preg 1.025 (1.005-1.030)
[2022-01-26 11:01] VITALS: TEMP 98.9; O2SAT 100
[2022-01-26 11:13] VITALS: BP 120/93
== END 2022-01-25 22:29 | disposition home or self-care (01) ==
LOC: ER 20:08
DX: N30.01 Acute cystitis with hematuria (principal)
CPT/HCPCS: 36415; 74177; 80053; 81003; 81015; 81025; 83690; 85025; 87077; 87086; 87088; 87186; 96361; 96365; 96375; 99284; J2405; J7030; Q9967